=== PATIENT | male | born 1970 | race Caucasian/White ===

== ENCOUNTER 2017-07-22 07:41 | Emergency (ER) | payer BC, OTHER ==
--- NOTE | 2017-07-22 08:07 | EDM.PDOC ---
ED HPI GENERAL MEDICAL PROBLEM - General Chief Complaint: ENT Problem Stated Complaint: SWOLLEN GLANDS IN NECK/JAWLINE Time Seen by Provider: 07/22/17 07:59 Source of Information: Reports: Patient History Limitations: Reports: No Limitations - History of Present Illness INITIAL COMMENTS - FREE TEXT/NARRATIVE: History of present illness: She's had 3 days of cold symptoms with cough, sinus congestion, ear pain and fevers. Patient feels a gland under his left ear that is tender and painful. He denies any sore throat or difficulty swallowing. Review of systems: As per history of present illness and below otherwise all systems reviewed and negative. Past medical history: As per history of present illness and as reviewed below otherwise noncontributory. Surgical history: As per history of present illness and as reviewed below otherwise noncontributory. Social history: No reported history of drug or alcohol abuse. Family history: As per history of present illness and as reviewed below otherwise noncontributory. Physical exam: General: Well developed, well nourished in NAD HEENT: Atraumatic, normocephalic, pupils reactive, negative for conjunctival pallor or scleral icterus, mucous membranes moist, throat clear, neck supple, nontender, trachea midline. No swelling or palpable adenopathy on the left neck or preauricular area. This area is tender to palpation there is no erythema TMs are clear Lungs: Clear to auscultation, breath sounds equal bilaterally, chest nontender. Heart: S1S2, regular, negative for clicks, rubs, or JVD. Abdomen: Soft, nondistended, nontender. Negative for masses or hepatosplenomegaly. Negative for costovertebral tenderness. Pelvis: Stable nontender. Genitourinary: Deferred. Rectal: Deferred. Extremities: Atraumatic, negative for cords or calf pain. Neurovascular unremarkable. Neuro: Awake, alert, oriented. Cranial nerves II through XII unremarkable. Cerebellum unremarkable. Motor and sensory unremarkable throughout. Exam nonfocal. Diagnostics: [] Therapeutics: [] Impression: []URI viral Plan: []Tylenol Motrin for pain increase fluids warm compresses to left facial area tenderness follow-up with PMD return if symptoms worsen or change Definitive disposition and diagnosis as appropriate pending reevaluation and review of above. left lower ear Pain Score (Numeric/FACES): 8 - Related Data Allergies Allergy/AdvReac Type Severity Reaction Status Date / Time No Known Allergies Allergy Verified 07/22/17 07:54 Home Meds: Home Meds Levothyroxine [Synthroid] 50 mcg PO ACBREAKFAST 07/22/17 [History] Lisinopril 20 mg PO DAILY 07/22/17 [History] Nebivolol HCl [Bystolic] 20 mg PO DAILY 07/22/17 [History] Past Medical History - Past Health History Medical/Surgical History: Denies Medical/Surgical History Cardiovascular History: Reports: Hypertension Endocrine/Metabolic History: Reports: Hypothyroidism, Obesity/BMI 30+ - Past Surgical History Musculoskeletal Surgical History: Reports: Other (See Below) Other Musculoskeletal Surgeries/Procedures:: left forearm sx Social & Family History - Family History Family Medical History: Noncontributory - Tobacco Use Smoking Status *Q: Never Smoker - Recreational Drug Use Recreational Drug Use: No ED ROS ENT - Review of Systems Review Of Systems: See Below (See history of present illness) ED EXAM, ENT - Physical Exam Exam: See Below (See history of present illness) Course - Vital Signs Last Recorded V/S: Last Vital Signs Temp 97.7 F 07/22/17 07:41 Pulse 72 07/22/17 07:41 Resp 18 07/22/17 07:41 BP 136/90 07/22/17 07:41 Pulse Ox 96 07/22/17 07:41 Departure - Departure Time of Disposition: 08:06 Disposition: Home, Self-Care 01 Condition: Good Clinical Impression: Viral URI - Discharge Information Referrals: PCP,None [Primary Care Provider] - Additional Instructions: The following information is given to patients seen in the emergency department who are being discharged to home. This information is to outline your options for follow-up care. We provide all patients seen in our emergency department with a follow-up referral. The need for follow-up, as well as the timing and circumstances, are variable depending upon the specifics of your emergency department visit. If you don't have a primary care physician on staff, we will provide you with a referral. We always advise you to contact your personal physician following an emergency department visit to inform them of the circumstance of the visit and for follow-up with them and/or the need for any referrals to a consulting specialist. The emergency department will also refer you to a specialist when appropriate. This referral assures that you have the opportunity for follow-up care with a specialist. All of these measure are taken in an effort to provide you with optimal care, which includes your follow-up. Under all circumstances we always encourage you to contact your private physician who remains a resource for coordinating your care. When calling for follow-up care, please make the office aware that this follow-up is from your recent emergency room visit. If for any reason you are refused follow-up, please contact the [facility] Emergency Department at and asked to speak to the emergency department charge nurse. [facility] [address] [place] [id number]
== END 2017-07-22 08:13 | disposition home or self-care (01) ==
LOC: MW.ED 07:41
DX: J06.9 Acute upper respiratory infection, unspecified (principal); I10 Essential (primary) hypertension; E03.9 Hypothyroidism, unspecified; Z79.899 Other long term (current) drug therapy
CPT/HCPCS: 99282

== ENCOUNTER 2017-11-11 16:41 | Emergency (ER) | payer OTHER ==
[2017-11-11] MEDS ORDERED: Ondansetron 4 MG/2 ML SDV IVPUSH ONE (16:50)
[2017-11-11] MEDS ORDERED: Sodium Chloride 0.9% 1,000 ML IV ONE (16:50)
--- NOTE | 2017-11-11 16:52 | EDM.PDOC ---
ED HPI GENERAL MEDICAL PROBLEM - General Stated Complaint: DIZZY, SICK Time Seen by Provider: 11/11/17 16:51 Source of Information: Reports: Patient - History of Present Illness INITIAL COMMENTS - FREE TEXT/NARRATIVE: HISTORY AND PHYSICAL: History of present illness: [Patient presents with chief complaint of dizziness and generally not feeling well He relates this to working in the rain storm a couple of days ago since he is developed late intermittent cough, states he has some chest discomfort with cough, but denies actual chest pain there is no association with diaphoresis shortness of breath or radiation to arm neck or jaw Patient is vague and nonspecific about to symptomology is mainly complaining of general malaise he denies fever however he is febrile on exam no nausea vomiting chills sweats no headache or palpitation denies bowel or urine symptoms ] Review of systems: As per history of present illness and below otherwise all systems reviewed and negative. Past medical history: As per history of present illness and as reviewed below otherwise noncontributory. Surgical history: As per history of present illness and as reviewed below otherwise noncontributory. Social history: No reported history of drug or alcohol abuse. Family history: As per history of present illness and as reviewed below otherwise noncontributory. Physical exam: HEENT: Atraumatic, normocephalic, pupils reactive, negative for conjunctival pallor or scleral icterus, mucous membranes moist, throat clear, neck supple, nontender, trachea midline. Tender over maxillary sinus on right with redness and loss of landmarks of the tympanic membrane no pain with movement of the auricle no mastoid tenderness sinus tenderness right greater than left supraorbital sinuses quite tender no redness no meningeal signs Lungs: Clear to auscultation, breath sounds equal bilaterally, chest nontender. Heart: S1S2, regular, negative for clicks, rubs, or JVD. Abdomen: Soft, nondistended, nontender. Negative for masses or hepatosplenomegaly. Negative for costovertebral tenderness. Pelvis: Stable nontender. Genitourinary: Deferred. Rectal: Deferred. Extremities: Atraumatic, negative for cords or calf pain. Neurovascular unremarkable. Neuro: Awake, alert, oriented. Cranial nerves II through XII unremarkable. Cerebellum unremarkable. Motor and sensory unremarkable throughout. Exam nonfocal. Diagnostics: [CBC CMP UA troponin EKG Chest 1 view ] orthostatic vitals Therapeutics: [ 1 L normal saline bolus Zofran 8 mg IV ] Amoxicillin 500 mg by mouth 3 times a day #30 no refill Phenergan 25 mg by mouth every 6 when necessary #30 no refill [id number] symptomatic therapy Impression: sinusitis Otitis media Fever [ dizzy ] Definitive disposition and diagnosis as appropriate pending reevaluation and review of above. chest discomfort Pain Score (Numeric/FACES): 8 - Related Data Allergies Allergy/AdvReac Type Severity Reaction Status Date / Time No Known Allergies Allergy Verified 11/11/17 16:56 Home Meds: Home Meds Levothyroxine [Synthroid] 50 mcg PO ACBREAKFAST 07/22/17 [History] Lisinopril 20 mg PO DAILY 07/22/17 [History] Nebivolol HCl [Bystolic] 20 mg PO DAILY 07/22/17 [History] Past Medical History - Past Health History Medical/Surgical History: Denies Medical/Surgical History Cardiovascular History: Reports: Hypertension Endocrine/Metabolic History: Reports: Hypothyroidism, Obesity/BMI 30+ - Past Surgical History Musculoskeletal Surgical History: Reports: Other (See Below) Other Musculoskeletal Surgeries/Procedures:: left forearm sx Social & Family History - Family History Family Medical History: Noncontributory ED ROS GENERAL - Review of Systems Review Of Systems: See Below ED EXAM, GENERAL - Physical Exam Exam: See Below Course - Vital Signs Last Recorded V/S: Last Vital Signs Temp 101.5 F H 11/11/17 17:05 Pulse 103 H 11/11/17 16:56 Resp 20 11/11/17 16:56 BP 161/87 H 11/11/17 16:56 Pulse Ox 93 L 11/11/17 16:56 - Orders/Labs/Meds Orders: Active Orders 24 hr Category Date Time Status EKG Documentation Completion [RC] STAT Care 11/11/17 16:50 Active Orthostatic Vital Signs [RC] ASDIRECTED Care 11/11/17 16:52 Active Chest 1V Frontal [CR] Stat Exams 11/11/17 16:50 Taken CULTURE BLOOD [BC] Stat Lab 11/11/17 17:04 Received CULTURE BLOOD [BC] Stat Lab 11/11/17 17:16 Received CULTURE STREP A CONFIRMATION [RM] Stat Lab 11/11/17 17:00 Results STREP SCRN A RAPID W CULT CONF [RM] Stat Lab 11/11/17 17:00 Ordered UA W/MICROSCOPIC [URIN] Stat Lab 11/11/17 18:06 Ordered Blood Culture x2 Reflex Set [OM.PC] Stat Oth 11/11/17 16:54 Ordered Labs: Laboratory Tests 11/11/17 11/11/17 Range/Units 17:04 17:04 WBC 15.21 H (4.0-11.0) K/uL RBC 5.24 (4.50-5.90) M/uL Hgb 14.3 (13.0-17.0) g/dL Hct 42.6 (38.0-50.0) % MCV 81.3 (80.0-98.0) fL MCH 27.3 (27.0-32.0) pg MCHC 33.6 (31.0-37.0) g/dL RDW Std Deviation 43.6 (28.0-62.0) fl RDW Coeff of Vignesh 15 (11.0-15.0) % Plt Count 218 (150-400) K/uL MPV 10.80 (7.40-12.00) fL Neut % (Auto) 78.4 (48.0-80.0) % Lymph % (Auto) 11.3 L (16.0-40.0) % Cloud % (Auto) 8.2 (0.0-15.0) % Eos % (Auto) 1.8 (0.0-7.0) % Baso % (Auto) 0.3 (0.0-1.5) % Neut # (Auto) 11.9 H (1.4-5.7) K/uL Lymph # (Auto) 1.7 (0.6-2.4) K/uL Cloud # (Auto) 1.3 H (0.0-0.8) K/uL Eos # (Auto) 0.3 (0.0-0.7) K/uL Baso # (Auto) 0.1 (0.0-0.1) K/uL Nucleated RBC % 0.0 /100WBC Nucleated RBCs # 0 K/uL Sodium 137 (136-148) mmol/L Potassium 3.4 L (3.5-5.1) mmol/L Chloride 101 (98-107) mmol/L Carbon Dioxide 27.2 (21.0-32.0) mmol/L BUN 17 (7.0-18.0) mg/dL Creatinine 1.4 H (0.8-1.3) mg/dL Est Cr Clr Drug Dosing 70.83 mL/min Estimated GFR (MDRD) 54.1 ml/min Glucose 107 H (74-106) mg/dL Calcium 8.8 (8.5-10.1) mg/dL Total Bilirubin 0.9 (0.2-1.0) mg/dL AST 31 (15-37) IU/L ALT 33 (14-63) IU/L Alkaline Phosphatase 34 L (46-116) U/L Troponin I < 0.050 (0.000-0.056) ng/mL Total Protein 7.3 (6.4-8.2) g/dL Albumin 3.8 (3.4-5.0) g/dL Globulin 3.5 (2.0-3.5) g/dL Albumin/Globulin Ratio 1.1 L (1.3-2.8) Meds: Medications Discontinued Medications Generic Name Dose Route Start Last Admin Trade Name Isaelq PRN Reason Stop Dose Admin Acetaminophen 1,000 mg 11/11/17 17:02 11/11/17 17:05 Tylenol Extra Strength PO 11/11/17 17:03 1,000 mg ONETIME ONE Administration Sodium Chloride 1,000 mls @ 999 mls/hr 11/11/17 16:50 11/11/17 17:05 Normal Saline IV 11/11/17 17:50 999 mls/hr STAT ONE Administration Ondansetron HCl 8 mg 11/11/17 16:50 11/11/17 17:05 Zofran IVPUSH 11/11/17 16:51 8 mg ONETIME ONE Administration Departure - Departure Time of Disposition: 18:06 Disposition: Home, Self-Care 01 Condition: Good Clinical Impression: Sinusitis, Otitis - Discharge Information Referrals: PCP,None [Primary Care Provider] - Additional Instructions: Medication as prescribed Return if symptoms persist or worsen or new concerning symptoms develop Follow-up with primary care as needed [facility] [address] [place] [id number] The following information is given to patients seen in the emergency department who are being discharged to home. This information is to outline your options for follow-up care. We provide all patients seen in our emergency department with a follow-up referral. The need for follow-up, as well as the timing and circumstances, are variable depending upon the specifics of your emergency department visit. If you don't have a primary care physician on staff, we will provide you with a referral. We always advise you to contact your personal physician following an emergency department visit to inform them of the circumstance of the visit and for follow-up with them and/or the need for any referrals to a consulting specialist. The emergency department will also refer you to a specialist when appropriate. This referral assures that you have the opportunity for follow-up care with a specialist. All of these measure are taken in an effort to provide you with optimal care, which includes your follow-up. Under all circumstances we always encourage you to contact your private physician who remains a resource for coordinating your care. When calling for follow-up care, please make the office aware that this follow-up is from your recent emergency room visit. If for any reason you are refused follow-up, please contact the [facility] emergency department at and asked to speak to the emergency department charge nurse. - My Orders Last 24 Hours: My Active Orders 11/11/17 16:50 EKG Documentation Completion [RC] STAT Chest 1V Frontal [CR] Stat 11/11/17 16:52 Orthostatic Vital Signs [RC] ASDIRECTED 11/11/17 16:54 Blood Culture x2 Reflex Set [OM.PC] Stat 11/11/17 17:00 CULTURE STREP A CONFIRMATION [RM] Stat STREP SCRN A RAPID W CULT CONF [RM] Stat 11/11/17 17:04 CULTURE BLOOD [BC] Stat 11/11/17 17:16 CULTURE BLOOD [BC] Stat 11/11/17 18:06 UA W/MICROSCOPIC [URIN] Stat - Assessment/Plan Last 24 Hours: My Active Orders 11/11/17 16:50 EKG Documentation Completion [RC] STAT Chest 1V Frontal [CR] Stat 11/11/17 16:52 Orthostatic Vital Signs [RC] ASDIRECTED 11/11/17 16:54 Blood Culture x2 Reflex Set [OM.PC] Stat 11/11/17 17:00 CULTURE STREP A CONFIRMATION [RM] Stat STREP SCRN A RAPID W CULT CONF [RM] Stat 11/11/17 17:04 CULTURE BLOOD [BC] Stat 11/11/17 17:16 CULTURE BLOOD [BC] Stat 11/11/17 18:06 UA W/MICROSCOPIC [URIN] Stat
[2017-11-11] MEDS ORDERED: Acetaminophen 500 MG Tab PO ONE (17:02)
[2017-11-11 17:44] LABS: CHLORIDE,CL 101 mmol/L (98-107); SODIUM,NA 137 mmol/L (136-148)
--- NOTE | 2017-11-13 09:37 | CR ---
EXAM DATE: 11/11/17 PATIENT'S AGE: 46 Patient: PERFECTO GALARZA Facility: [place], [place] Site . Site : [id number] Study: XRay Chest [id number]/2/2018 5:25:22 PM Ordering Physician: Doctor Sevilla Final Report: INDICATION: pain INDICATION: Chest pain. TECHNIQUE: Single view portable. FINDINGS: Heart size is within normal limits for portable technique. The lungs are free of infiltrate. There is no pulmonary edema. IMPRESSION: Clear chest. Dictated by Simone Allred MD @ 11/11/2017 5:43:00 PM Dictated by: Simone Allred MD @ 11/11/2017 17:43:07 (Electronic Signature) Report Signed by Proxy. NORMA
== END 2017-11-11 18:55 | disposition home or self-care (01) ==
LOC: MW.ED 16:41
DX: H66.91 Otitis media, unspecified, right ear (principal); J32.9 Chronic sinusitis, unspecified; E03.9 Hypothyroidism, unspecified; R07.9 Chest pain, unspecified; E66.9 Obesity, unspecified; I10 Essential (primary) hypertension; Z79.899 Other long term (current) drug therapy; Z68.35 Body mass index [BMI] 35.0-35.9, adult
CPT/HCPCS: 71045; 80053; 81001; 84484; 85025; 87040; 87081; 87880; 93005; 96361; 96374; 99284; A9270; J2405; J7040; 99283

== ENCOUNTER 2021-01-27 19:01 | Emergency (ER) | payer OTHER ==
--- NOTE | 2021-01-27 21:24 | EDM.PDOC ---
ED HPI GENERAL MEDICAL PROBLEM - General Chief Complaint: Back Pain or Injury Stated Complaint: LOWER BACK PAIN Time Seen by Provider: 01/27/21 20:46 Source of Information: Reports: Patient History Limitations: Reports: No Limitations - History of Present Illness INITIAL COMMENTS - FREE TEXT/NARRATIVE: HISTORY AND PHYSICAL: History of present illness: Patient is a 50-year-old male who presents emergency room today with concern of low back pain x2 weeks. Patient states that nothing precipitated his low back other than that he has been sitting in a old worn-out chair in his vehicle for work. 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 Patient states that it is directly in the middle and at times it is sharp and worse when trying to move and actually improves when he has been working for extended periods of time. Patient states that he has tried an old anti-inflammatory that he had available to him with mild relief of symptoms and did take 400 mg of ibuprofen this morning with mild relief of symptoms. Patient denies any loss or retention of bowel bladder function or saddle anesthesia. Patient denies any associated fevers or neck stiffness. Patient denies any IV drug use or history of cancer. Patient denies any other symptoms or concerns. Patient denies fever, chills, chest pain, shortness of breath, or cough. Denies headache, neck stiff ness, change in vision, syncope, or near syncope. Denies nausea, vomiting, abdominal pain, diarrhea, constipation, or dysuria. Has not noted any blood in urine or stool. Patient has been eating and drinking appropriately. Review of systems: As per history of present illness and below otherwise all systems reviewed and negative. Past medical history: As per history of present illness and as reviewed below otherwise noncontributory. Surgical history: As per history of present illness and as reviewed below otherwise noncontr ibutory. Social history: See social history for further information Family history: As per history of present illness and as reviewed below otherwise noncontributory. Physical exam: General: Patient is alert, oriented, and in no acute distress. Patient sitting comfortably on exam table. Vitals stable and reviewed by me HEENT: Atraumatic, normocephalic, pupils equal and reactive bilaterally, negative for conjunctival pallor or scleral icterus, mucous membranes moist, TMs normal bilaterally, throat clear, neck supple, nontender, trachea midline. No drooling or trismus noted. No meningeal signs. No hot potato voice noted. Lungs: Clear to auscultation, breath sounds equal bilaterally, chest nontender. Heart: S1S2, regular rate and rhythm without overt murmur Abdomen: Soft, nondistended, nontender. Negative for masses or hepatosplenomegaly. Negative for costovertebral tenderness. Pelvis: Stable nontender. Genitourinary: Deferred. Rectal: Deferred. Skin: Intact, warm, dry. No lesions or rashes noted. Extremities: No obvious deformity of the complete spine. No step-offs, crepitus, or point tenderness to palpation of the complete spine. Patient does have pain with range of motion of the lumbar spine but does have full range of motion of the complete spine without deficit. Patient does have pain with palpation of right sided paraspinous muscle of the thoracic or lumbar spine. Straight leg raise intact bilaterally. Heel/toe gait intact. Patellar reflexes intact bilaterally. Otherwise, atraumatic, negative for cords or calf pain. Neurovascular unremarkable. Neuro: Awake, alert, oriented. Cranial nerves II through XII unremarkable. Cerebellum unremarkable. Motor and sensory unremarkable throughout. Exam nonfocal. Notes: Signs symptoms that were prompt return to the ED thoroughly discussed with patient. Discussed importance for follow-up with a primary care provider. Voices understanding and is agreeable to plan of care. Denies any further questions or concerns at this time. Diagnostics: None Therapeutics: I did offer Toradol, Flexeril, or tramadol, however patient declines Prescription: 800 mg ibuprofen (I did offer Flexeril, diclofenac, or tramadol but patient declines) Impression: Low back pain Plan: 1. When resting please lay on a flat firm surface. Limit your mobility to prevent muscle stiffness. Get up to ambulate/move around/gentle stretching multiple times throughout the day. May alternate heat and ice to painful areas. 2. You can alternate ibuprofen and Tylenol as directed for pain and discomfort. 3. Follow-up with your primary care provider as discussed. Return to the ED as needed and as discussed. Definitive disposition and diagnosis as appropriate pending reevaluation and review of above. Lower back Pain Score (Numeric/FACES): 7 - Related Data Allergies Allergy/AdvReac Type Severity Reaction Status Date / Time No Known Allergies Allergy Verified 01/27/21 20:47 Home Meds: Home Meds Levothyroxine [Synthroid] 50 mcg PO ACBREAKFAST 07/22/17 [History] Lisinopril 20 mg PO DAILY 07/22/17 [History] Ibuprofen 800 mg PO Q8H PRN #30 tablet 01/27/21 [Rx] carvediloL [Carvedilol] 12.5 mg PO DAILY 01/27/21 [History] Past Medical History - Past Health History Medical/Surgical History: Denies Medical/Surgical History HEENT History: Reports: None Cardiovascular History: Reports: Hypertension Respiratory History: Reports: Asthma Gastrointestinal History: Reports: None Genitourinary History: Reports: None Musculoskeletal History: Reports: None, Back Pain, Chronic Neurological History: Reports: None Psychiatric History: Reports: None Endocrine/Metabolic History: Reports: Hypothyroidism, Obesity/BMI 30+ Hematologic History: Reports: None Immunologic History: Reports: None Oncologic (Cancer) History: Reports: None Dermatologic History: Reports: None - Infectious Disease History Infectious Disease History: Reports: None - Past Surgical History Head Surgeries/Procedures: Reports: None HEENT Surgical History: Reports: None Cardiovascular Surgical History: Reports: None Respiratory Surgical History: Reports: None GI Surgical History: Reports: None Male Surgical History: Reports: None Neurological Surgical History: Reports: None Musculoskeletal Surgical History: Reports: Other (See Below) Other Musculoskeletal Surgeries/Procedures:: left forearm sx Oncologic Surgical History: Reports: None Dermatological Surgical History: Reports: None Social & Family History - Family History Family Medical History: No Pertinent Family History - Tobacco Use Tobacco Use Status *Q: Never Tobacco User - Caffeine Use Caffeine Use: Reports: Soda, Tea - Recreational Drug Use Recreational Drug Use: No ED ROS GENERAL - Review of Systems Review Of Systems: Comprehensive ROS is negative, except as noted in HPI. ED EXAM, GENERAL - Physical Exam Exam: See Below (See dictation) Course - Vital Signs Last Recorded V/S: Last Vital Signs Temp 97.2 F 01/27/21 21:35 Pulse 69 01/27/21 21:35 Resp 18 01/27/21 21:35 BP 138/93 H 01/27/21 21:35 Pulse Ox 98 01/27/21 21:35 Departure - Departure Time of Disposition: 21:23 Disposition: Home, Self-Care 01 Clinical Impression: Low back pain Qualifiers: Chronicity: acute Back pain laterality: midline Sciatica presence: without sciatica Qualified Code(s): M54.5 - Low back pain - Discharge Information Prescriptions: Ibuprofen 800 mg PO Q8H PRN #30 tablet PRN Reason: Pain Instructions: Acute Back Pain, Adult Referrals: PCP,None [Primary Care Provider] - Forms: ED Department Discharge Additional Instructions: The following information is given to patients seen in the emergency department who are being discharged to home. This information is to outline your options for follow-up care. We provide all patients seen in our emergency department with a follow-up referral. The need for follow-up, as well as the timing and circumstances, are variable depending upon the specifics of your emergency department visit. If you don't have a primary care physician on staff, we will provide you with a referral. We always advise you to contact your personal physician following an emergency department visit to inform them of the circumstance of the visit and for follow-up with them and/or the need for any referrals to a consulting specialist. The emergency department will also refer you to a specialist when appropriate. This referral assures that you have the opportunity for follow-up care with a specialist. All of these measure are taken in an effort to provide you with optimal care, which includes your follow-up. Under all circumstances we always encourage you to contact your private physician who remains a resource for coordinating your care. When calling for follow-up care, please make the office aware that this follow-up is from your recent emergency room visit. If for any reason you are refused follow-up, please contact the [facility] Emergency Department at and asked to speak to the emergency department charge nurse. [facility] [address] [place] [address] [id number] [address] [address] 1. When resting please lay on a flat firm surface. Limit your mobility to prevent muscle stiffness. Get up to ambulate/move around/gentle stretching multiple times throughout the day. May alternate heat and ice to painful areas. 2. You can alternate ibuprofen and Tylenol as directed for pain and discomfort. 3. Follow-up with your primary care provider as discussed. Return to the ED as needed and as discussed. Sepsis Event Note (ED) - Evaluation Sepsis Screening Result: No Definite Risk - Focused Exam Vital Signs: Vital Signs Temp Pulse Resp BP Pulse Ox 01/27/21 21:35 97.2 F 69 18 138/93 H 98 01/27/21 20:45 97.0 F 69 18 145/92 H 95
== END 2021-01-27 21:35 | disposition home or self-care (01) ==
LOC: MW.ED 19:01
DX: M54.5 Low back pain (principal); I10 Essential (primary) hypertension; E03.9 Hypothyroidism, unspecified; E66.9 Obesity, unspecified; Z68.33 Body mass index [BMI] 33.0-33.9, adult; Z79.899 Other long term (current) drug therapy
CPT/HCPCS: 99283